=== PATIENT | female | born 1990 | race Caucasian/White ===

== ENCOUNTER 2017-06-10 13:59 | Emergency (ER) | payer BC ==
[~2017-06-10] VITALS: Ht 160 cm; Wt 70.3 kg
--- NOTE | 2017-06-10 14:15 | NUR ---
PT BB SELF FROM HOME C/O OF VAGINAL BLEEDING SINCE MAY 25. PT IS AAOX4. PT DENIES PAIN. PT STATES "I HAVE BEEN OFF OF MY CONTROL PILLS SINCE ". PT STATES + TO BEING . PT RESP EVEN AND UNLABORED. NO S/S OF ACUTE DISTRESS NOTED. SKIN WNL. PT SAFETY AND COMFORT MEASURES IN PLACE. PT GOWNED AND PLACED ON MONITOR AND POX. AWAITING MD FOR EVAL.
--- NOTE | 2017-06-10 14:18 | NUR ---
PT TO RESTROOM TO GIVE URINE SAMPLE.
[2017-06-10 14:31] LABS: APPEARANCE,URINE Slightly Cloudy (CLEAR); BILIRUBIN,URINE Negative (NEGATIVE); BLOOD, URINE Large Ery/uL (NEGATIVE); COLOR,URINE Yellow (YELLOW); KETONES,URINE 15 (NEGATIVE); LEUKOCYTE ESTERASE ,URINE Negative (NEGATIVE); NITRITE, URINE Negative (NEGATIVE); PROTEIN,URINE 30 mg/dl (NEGATIVE); UGLUCOSE Negative (NEGATIVE); UROBILINOGEN,URINE 0.2 EU/dL (0.2)
--- NOTE | 2017-06-10 14:35 | NUR ---
PHLEBOTOMY BEDSIDE FOR BLOOD DRAW.
[2017-06-10 14:40] LABS: BACTERIA,URINE None seen /HPF (None Seen); SQUAMOUS EPITHELIAL CELL,UR Few /HPF (None Seen); WBC,URINE 0-3 /HPF (0-3)
[2017-06-10 14:44] LABS: BASOPHILS # (AUTO) 0.1 /CMM (0.0-0.2); BASOPHILS % (AUTO) 0.8 % (0.0-2.0); EOSINOPHILS % (AUTO) 0.7 % (0.0-6.0); HEMATOCRIT 40 % (33-45); HEMOGLOBIN 14.1 g/dL (11.5-14.8); LYMPHOCYTES # (AUTO) 1.9 /CMM (0.8-4.8); MEAN CORPUSCULAR HGB CONC 35 g/dl (31.0-36.0); MEAN CORPUSCULAR VOLUME 88 fL (82-100); MONOCYTES # (AUTO) 0.4 /CMM (0.1-1.30); MONOCYTES % (AUTO) 5.2 % (2.0-12.0); NEUTROPHILS # (AUTO) 4.9 /CMM (1.8-8.9); NEUTROPHILS % (AUTO) 67.3 % (43.0-81.0); PLATELET COUNT (AUTO) 214 /CMM (150-450); RDW COEFFICIENT OF VARIATION 11.9 (11.5-15.0); WHITE BLOOD COUNT (AUTO) 7.4 K/uL (4.3-11.0)
[2017-06-10 14:54] LABS: CALCIUM, SERUM 8.8 mg/dL (8.5-10.1); CREATININE 0.7 mg/dL (0.6-1.3); POTASSIUM 3.3 mmol/L (3.5-5.1)
--- NOTE | 2017-06-10 15:17 | NUR ---
PATIENT IS NOT A CANDIDATE FOR RHOGAM, BLOOD TYPE A+
--- NOTE | 2017-06-10 15:59 | NUR ---
Patient discharged to home in stable condition. Written and verbal after care instructions given. Patient verbalizes understanding of instruction. VSS upon discharge. Pt ambulated with steady gait out of ER
[2017-06-10 16:00] VITALS: BP 134/87
== END 2017-06-10 16:01 | disposition home or self-care (01) ==
LOC: ER 14:07
DX: O20.0 Threatened abortion (principal); F17.200 Nicotine dependence, unspecified, uncomplicated; F12.10 Cannabis abuse, uncomplicated
CPT/HCPCS: 36415; 76856; 80048; 81001; 84702; 85025; 99285; 99406; A4606; Z7610; 81000-TC